=== PATIENT | female | born 1940 | race Caucasian/White ===

== ENCOUNTER 2021-12-24 14:40 | Inpatient (IN) | payer MEDICARE ==
[~2021-12-24] VITALS: Ht 170.2 cm; Wt 79.8 kg
[2021-12-24 14:50] VITALS: BP_SYST 120
[2021-12-24] MEDS ORDERED: dilTIAZem HCL IVP 5 MG/ML VIAL IVP ONE ×3 (15:15→18:45)
[2021-12-24 16:20] LABS: BASOPHILS % (AUTO) 0.4 % (0.0-2.0); EOSINOPHILS # (AUTO) 0.1 K/uL (0.0-0.4); EOSINOPHILS % (AUTO) 1.5 % (0.0-4.0); HEMATOCRIT 36.6 % (36-48); HEMOGLOBIN 12.1 g/dL (12.0-16.0); LYMPHOCYTES # (AUTO) 0.9 K/uL (1.0-5.5); LYMPHOCYTES % (AUTO) 13.4 % (20.5-51.5); MEAN CORPUSCULAR HEMOGLOBIN 30 pg (27-31); MEAN CORPUSCULAR HGB CONC 33 % (32-36); MEAN CORPUSCULAR VOLUME 90 fL (79.0-98.0); MONOCYTES # (AUTO) 0.9 K/uL (0.0-1.0); MONOCYTES % (AUTO) 13.1 % (1.7-9.3); NEUTROPHILS # (AUTO) 4.6 K/uL (1.8-7.7); NEUTROPHILS % (AUTO) 71.6 % (40.0-70.0); PLATELET COUNT (AUTO) 154 K/uL (130-430); RED BLOOD CELL COUNT(AUTO) 4.08 MIL/uL (4.2-6.2); RED CELL DISTRIBUTION WIDTH 15.3 % (9.0-15.0); WHITE BLOOD COUNT (AUTO) 6.5 K/uL (4.8-10.8)
[2021-12-24 16:56] LABS: ALANINE AMINOTRANSFERASE 22 U/L (12-78); ALBUMIN 2.7 g/dL (3.4-4.8); ASPARTATE AMINOTRANSFERASE 42 U/L (10-37); CALCIUM 8.5 mg/dL (8.4-11.0); CREATININE 0.95 mg/dL (0.55-1.30); GLUCOSE 146 mg/dL (70-99); PHOSPHORUS 3.7 mg/dL (2.7-4.5); TOTAL BILIRUBIN 0.9 mg/dL (0.0-1.0); UREA NITROGEN, BLOOD 13 mg/dL (8-21)
[2021-12-24 18:26] LABS: POTASSIUM 3.3 mmol/L (3.5-5.1)
[2021-12-24 18:31] LABS: SODIUM SERUM 140 mmol/L (136-145)
[2021-12-24 18:32] LABS: ANION GAP 9 (5-15); CHLORIDE 103 mmol/L (98-107)
[2021-12-24] MEDS: METOPROLOL SUCCINATE 50 MG TAB.SR.24H (TOPROL XL) PO ONE ×2 (18:56→19:13)
[2021-12-24 20:04] LABS: BILIRUBIN,URINE 1+ (NEGATIVE); CLARITY/URINE CLOUDY (CLEAR); COLOR,URINE YELLOW (YELLOW); GLUCOSE,URINE NEGATIVE (NEGATIVE); KETONES,URINE TRACE (NEGATIVE); LEUKOCYTE ESTERASE ,URINE NEGATIVE (NEGATIVE); NITRITE, URINE NEGATIVE (NEGATIVE); PH,URINE 6.5 (5.0-8.0); PROTEIN URINE TRACE (NEGATIVE)
[2021-12-24 20:12] LABS: BLOOD, URINE TRACE (NEGATIVE)
[2021-12-24 20:29] LABS: BACTERIA,URINE MANY /HPF (None Seen); CALCIUM OXALATE CRYSTALS,UR 0-10 /HPF (None Seen); MUCUS,URINE None Seen /LPF (None Seen); RBC,URINE 0-3 /HPF (0-3)
[2021-12-24 23:00] VITALS: BP_SYST 187
[2021-12-25] VITALS (23 sets, daily range): BP systolic 115–177
[2021-12-25 00:32] LABS: ANION GAP 7 (5-15); CALCIUM 8.3 mg/dL (8.4-11.0); CHLORIDE 102 mmol/L (98-107); CREATININE 0.85 mg/dL (0.55-1.30); GLUCOSE 105 mg/dL (70-99); POTASSIUM 3.2 mmol/L (3.5-5.1); SODIUM SERUM 139 mmol/L (136-145); UREA NITROGEN, BLOOD 12 mg/dL (8-21)
[2021-12-25] MEDS ORDERED: ENALAPRILAT DIHYDRATE 1.25 MG/ML VIAL IVP PRN (00:45)
[2021-12-25 00:55] LABS: ALANINE AMINOTRANSFERASE 24 U/L (12-78); ALBUMIN 2.6 g/dL (3.4-4.8); ASPARTATE AMINOTRANSFERASE 35 U/L (10-37); TOTAL BILIRUBIN 0.9 mg/dL (0.0-1.0)
[2021-12-25 06:26] LABS: BASOPHILS % (AUTO) 0.7 % (0.0-2.0); EOSINOPHILS % (AUTO) 0.4 % (0.0-4.0); HEMATOCRIT 34.9 % (36-48); HEMOGLOBIN 11.6 g/dL (12.0-16.0); LYMPHOCYTES # (AUTO) 1.2 K/uL (1.0-5.5); LYMPHOCYTES % (AUTO) 16.3 % (20.5-51.5); MEAN CORPUSCULAR HEMOGLOBIN 30 pg (27-31); MEAN CORPUSCULAR HGB CONC 33 % (32-36); MEAN CORPUSCULAR VOLUME 89 fL (79.0-98.0); MONOCYTES # (AUTO) 0.9 K/uL (0.0-1.0); MONOCYTES % (AUTO) 12.7 % (1.7-9.3); NEUTROPHILS % (AUTO) 69.9 % (40.0-70.0); PLATELET COUNT (AUTO) 146 K/uL (130-430); RED BLOOD CELL COUNT(AUTO) 3.92 MIL/uL (4.2-6.2); RED CELL DISTRIBUTION WIDTH 15.2 % (9.0-15.0); WHITE BLOOD COUNT (AUTO) 7.1 K/uL (4.8-10.8)
[2021-12-25 08:21] LABS: INR 1.2 (0.8-1.2); PROTHROMBIN TIME 12.2 SECS (9.5-12.5)
[2021-12-25] MEDS: levETIRAcetam 500 MG TABLET PO SCH ×4 (09:48→21:14)
[2021-12-25] MEDS ORDERED: POTASSIUM CHLORIDE 20 MEQ TAB.PRT.SR PO ONE (10:30)
[2021-12-25] MEDS ORDERED: METO-442 PO (10:51)
[2021-12-25] MEDS ORDERED: LIP40 PO (10:52)
[2021-12-25] MEDS ORDERED: LISI20TA30 PO (10:52)
[2021-12-25] MEDS ORDERED: DABI150C PO (10:52)
[2021-12-26] VITALS (24 sets, daily range): BP systolic 99–172
[2021-12-26] MEDS: levETIRAcetam 500 MG TABLET PO SCH ×2 (09:18→20:41)
[2021-12-26] MEDS ORDERED: DABIGATRAN ETEXILATE MESYLATE 75 MG CAPSULE PO ONE (10:00)
[2021-12-26] MEDS ORDERED: ATORVASTATIN 20 MG TABLET PO ONE (10:00)
[2021-12-26] MEDS ORDERED: METOPROLOL TARTRATE 50 MG TABLET PO ONE (10:15)
[2021-12-26] MEDS ORDERED: lisinopriL 20 MG TABLET PO ONE (10:15)
[2021-12-26] MEDS: METOPROLOL TARTRATE 50 MG TABLET PO SCH (20:42)
[2021-12-26] MEDS: DABIGATRAN ETEXILATE MESYLATE 75 MG CAPSULE PO SCH (21:18)
[2021-12-27] VITALS (25 sets, daily range): BP systolic 81–166
[2021-12-27 06:35] LABS: BASOPHILS % (AUTO) 0.5 % (0.0-2.0); EOSINOPHILS # (AUTO) 0.2 K/uL (0.0-0.4); EOSINOPHILS % (AUTO) 2.9 % (0.0-4.0); HEMATOCRIT 34.3 % (36-48); HEMOGLOBIN 11.6 g/dL (12.0-16.0); LYMPHOCYTES # (AUTO) 2.2 K/uL (1.0-5.5); LYMPHOCYTES % (AUTO) 32.8 % (20.5-51.5); MEAN CORPUSCULAR HEMOGLOBIN 30 pg (27-31); MEAN CORPUSCULAR HGB CONC 34 % (32-36); MEAN CORPUSCULAR VOLUME 89 fL (79.0-98.0); MONOCYTES # (AUTO) 0.7 K/uL (0.0-1.0); MONOCYTES % (AUTO) 10.1 % (1.7-9.3); NEUTROPHILS # (AUTO) 3.6 K/uL (1.8-7.7); NEUTROPHILS % (AUTO) 53.7 % (40.0-70.0); PLATELET COUNT (AUTO) 160 K/uL (130-430); RED BLOOD CELL COUNT(AUTO) 3.88 MIL/uL (4.2-6.2); RED CELL DISTRIBUTION WIDTH 15.1 % (9.0-15.0); WHITE BLOOD COUNT (AUTO) 6.7 K/uL (4.8-10.8)
[2021-12-27 07:00] LABS: ALANINE AMINOTRANSFERASE 14 U/L (12-78); ALBUMIN 2.3 g/dL (3.4-4.8); ANION GAP 6 (5-15); ASPARTATE AMINOTRANSFERASE 25 U/L (10-37); CALCIUM 8.4 mg/dL (8.4-11.0); CHLORIDE 101 mmol/L (98-107); CREATININE 0.71 mg/dL (0.55-1.30); GLUCOSE 98 mg/dL (70-99); SODIUM SERUM 139 mmol/L (136-145); UREA NITROGEN, BLOOD 13 mg/dL (8-21)
[2021-12-27] MEDS: lisinopriL 20 MG TABLET PO SCH ×2 (09:00→09:50)
[2021-12-27] MEDS: METOPROLOL TARTRATE 50 MG TABLET PO SCH ×3 (09:00→20:52)
[2021-12-27] MEDS: ATORVASTATIN 20 MG TABLET PO SCH (09:24)
[2021-12-27] MEDS: levETIRAcetam 500 MG TABLET PO SCH ×2 (09:25→20:51)
[2021-12-27] MEDS: DABIGATRAN ETEXILATE MESYLATE 75 MG CAPSULE PO SCH ×2 (09:37→21:00)
[2021-12-27] MEDS ORDERED: KCL 40 mEq in 100 mL (PREMIX) 100 ML IV ONE (12:15)
[2021-12-27] MEDS ORDERED: POTASSIUM CHLORIDE 20 MEQ TAB.PRT.SR PO ONE (12:15)
[2021-12-27] MEDS ORDERED: POTASSIUM CHLORIDE 40 MEQ in NS 250 ML IV ONE (13:00)
[2021-12-28 04:00] VITALS: BP_SYST 131
[2021-12-28 08:12] VITALS: BP_SYST 148
[2021-12-28] MEDS: DABIGATRAN ETEXILATE MESYLATE 75 MG CAPSULE PO SCH ×2 (08:57→20:18)
[2021-12-28] MEDS: levETIRAcetam 500 MG TABLET PO SCH ×2 (08:58→20:17)
[2021-12-28] MEDS: lisinopriL 20 MG TABLET PO SCH (08:58)
[2021-12-28] MEDS: ATORVASTATIN 20 MG TABLET PO SCH (08:59)
[2021-12-28] MEDS: METOPROLOL TARTRATE 50 MG TABLET PO SCH ×2 (08:59→20:16)
[2021-12-28 12:00] VITALS: BP_SYST 142
[2021-12-28 17:00] VITALS: BP_SYST 146
[2021-12-28 19:44] VITALS: BP_SYST 166
[2021-12-29 00:14] VITALS: BP_SYST 152
[2021-12-29 08:00] VITALS: BP_SYST 164
[2021-12-29] MEDS: DABIGATRAN ETEXILATE MESYLATE 75 MG CAPSULE PO SCH ×2 (10:00→21:15)
[2021-12-29] MEDS: lisinopriL 20 MG TABLET PO SCH (10:01)
[2021-12-29] MEDS: levETIRAcetam 500 MG TABLET PO SCH ×2 (10:01→21:13)
[2021-12-29] MEDS: METOPROLOL TARTRATE 50 MG TABLET PO SCH ×2 (10:02→21:14)
[2021-12-29] MEDS: ATORVASTATIN 20 MG TABLET PO SCH (10:02)
[2021-12-29 12:00] VITALS: BP_SYST 136
[2021-12-29 17:44] VITALS: BP_SYST 142
[2021-12-29 20:00] VITALS: BP_SYST 146
[2021-12-30 01:10] VITALS: BP_SYST 134
[2021-12-30] MEDS: ATORVASTATIN 20 MG TABLET PO SCH (08:23)
[2021-12-30] MEDS: levETIRAcetam 500 MG TABLET PO SCH ×2 (08:23→20:46)
[2021-12-30] MEDS: METOPROLOL TARTRATE 50 MG TABLET PO SCH ×2 (08:28→20:46)
[2021-12-30] MEDS: DABIGATRAN ETEXILATE MESYLATE 75 MG CAPSULE PO SCH ×2 (08:28→20:46)
[2021-12-30] MEDS: lisinopriL 20 MG TABLET PO SCH (08:29)
[2021-12-30 19:00] VITALS: BP_SYST 146
[2021-12-30 20:00] VITALS: BP_SYST 145
[2021-12-31] VITALS: BP_SYST 142
[2021-12-31] MEDS: DABIGATRAN ETEXILATE MESYLATE 75 MG CAPSULE PO SCH (09:55)
[2021-12-31] MEDS: levETIRAcetam 500 MG TABLET PO SCH (09:55)
[2021-12-31] MEDS: ATORVASTATIN 20 MG TABLET PO SCH (10:00)
[2021-12-31] MEDS: METOPROLOL TARTRATE 50 MG TABLET PO SCH (10:00)
[2021-12-31] MEDS: lisinopriL 20 MG TABLET PO SCH (10:01)
[2021-12-31] MEDS ORDERED: LEVE500T9 PO (17:07)
[2021-12-31 17:33] VITALS: BP_SYST 140
== END 2021-12-31 18:40 | disposition home health service (06) | DRG 100 ==
LOC: SED 14:40 → SIC 22:23 → SMU 12-27 23:11 → STU 12-27 23:16
PROVIDERS: ADMIT Internal Medicine; ATTEND Internal Medicine
DX: G40.409 Other generalized epilepsy and epileptic syndromes, not intractable, without status epilepticus (principal); E43 Unspecified severe protein-calorie malnutrition; I69.354 Hemiplegia and hemiparesis following cerebral infarction affecting left non-dominant side; I48.20 Chronic atrial fibrillation, unspecified; E87.6 Hypokalemia; E78.00 Pure hypercholesterolemia, unspecified; I10 Essential (primary) hypertension; Z20.822 Contact with and (suspected) exposure to COVID-19; E78.5 Hyperlipidemia, unspecified; S01.512A Laceration without foreign body of oral cavity, initial encounter; X58.XXXA Exposure to other specified factors, initial encounter; Y93.89 Activity, other specified; Y92.89 Other specified places as the place of occurrence of the external cause; Z87.891 Personal history of nicotine dependence; Z79.899 Other long term (current) drug therapy; Y99.8 Other external cause status; Z63.4 Disappearance and death of family member
CPT/HCPCS: 36415; 70450-TC; 71045; 76376; 80053; 81000; 83735; 84100; 84484; 85025; 85610-TC; 87081; 87086; 92610-GN; 93005; 95816; 96374; 96376; 97110-GP; 97116-GP; 97530-GP; 99285; G0378; J3480; J3490; J7050; J7060